=== PATIENT | male | born 1960 | race Caucasian/White ===

== ENCOUNTER 2022-01-25 08:18 | Day surgery (SDC) | payer OTHER, SELFPAY ==
[2022-01-25] VITALS (22 sets, daily range): BP systolic 127–177; BP diastolic 79–113; PULSE 54–75; RESP 16; TEMP 36.1–36.4; O2SAT 92–99; BMI 32.8
[2022-01-25] MEDS: LACTATED RINGERS 1000 ML 1,000 ML 100 ML IV ×2 (09:00→11:20)
[2022-01-25] MEDS: SODIUM CHLORIDE 0.9 % (FLUSH) 10 ML SYRINGE IVF (09:00)
[2022-01-25] MEDS: fentaNYL 100 MCG/2 ML inj IVP (09:06)
[2022-01-25] MEDS: MIDAZOLAM HCL 1 MG/ML inj IVP (09:06)
--- NOTE | 2022-01-25 09:06 | SUR.PREOP ---
TIME?OUT:?904 PT/RN/MDA?VERIFICATION?OF?SURGICAL?SITE,?PROCEDURE,?AND?CONSENT OBTAINED?PRIOR?TO?INVASIVE?PROCEDURE.
--- NOTE | 2022-01-25 09:20 | P.NB_ITS ---
Nerve Block Nerve Block Time Seen by Provider: 09:15 Date Seen: 01/25/22 Type of block requested by surgeon for post-operative analgesia: supraclavicular Side: right Time out performed: Yes Verification of patient name: Yes Verification of date of : Yes Site marking: site marked Name of person performing procedure: rosmery bettencourt Assistants, if any: Joaquín Mckenzie Continuous monitoring Was continuous monitoring of O2 sat, B/P, oxide furnace tender, recorded every 15 minutes?: Yes Procedure Checklist: sterile prep, needles and gloves Ultrasound guided. Images saved: Yes Medications given in 5ml increments after negative aspiration: Marcaine Decadron (mg): 10 Precedex (mcg): 20 Patient tolerated procedure well: Yes Block Charges Block Charge (with Pro Fee): Brachial Plexus Use of Ultrasound Machine for Block: Yes- US Guidance/pain block
[2022-01-25] MEDS: CEFAZOLIN 2 GM in 0.9 % SODIUM CHLORIDE Mini-bag 100 ML IVPB (10:30)
[2022-01-25] MEDS: EPINEPHrine 1 MG in SODIUM CHLORIDE IRRIG SOLUTION 3,000 ML 3001 MG IRRIGATION (10:57)
--- NOTE | 2022-01-25 11:45 | P.ORPRC_ITS ---
Procedure Note Date of procedure: 01/25/22 Procedure: PREOPERATIVE DIAGNOSES: 1. Right shoulder rotator cuff tear, moderate grade partial-thickness supraspinatus. POSTOPERATIVE DIAGNOSES: 1. Right shoulder rotator cuff tear, high-grade partial-thickness supraspinatus 2. Right shoulder grade 4 chondromalacia glenoid posterior central and posterior superior with some loose chondral flaps surrounding. 3. Right shoulder anterior labral tearing. 4. Right shoulder grade 2 chondromalacia humeral head 5. Right shoulder low-grade partial-thickness long head of biceps tendon tearing near the origin NAME OF OPERATION: 1. Right shoulder arthroscopic rotator cuff repair - supraspinatus 2. Right shoulder arthroscopic extensive glenohumeral debridement SURGEON: Juan Cole MD CHILD AND FAMILY SERVICES SPECIALIST: Sven Jackson PA-C. Of note, a skilled costumer assistant was critical for this case to aide in patient positioning, suture manipulation, arm positioning, instrument positioning, and closure. ANESTHESIA: General plus preoperative supraclavicular block. EBL: Less than 25 mL IMPLANTS: Arthrex 2.6 mm FiberTak (x1); 5.5 mm BioComposite SwiveLock suture anchor (x1) COMPLICATIONS: None evident INDICATIONS: The patient is a pleasant, 61-year-old male who has experienced right shoulder pain that has been increasing in recent time. Physical exam and imaging were consistent with a rotator cuff tear. Given their findings, as well as the weakness and pain, and inadequate response to nonoperative management, recommendation was made for surgery. FINDINGS: Exam under anesthesia revealed stable shoulder with excellent range of motion. The diagnostic arthroscopy revealed grade 2 chondromalacia humeral head with some loose chondral flaps. Also grade 4 chondromalacia posterior central and posterior superior glenoid with some adjacent chondral flaps. Another moderate size chondral flap over the anterior inferior glenoid at a region with grade 3-4 chondromalacia as well. The Subscapularis tendon was intact with a healthy attachment. The long head of the biceps tendon was torn low-grade manner at its origin, but it remained located within the bicipital groove. The superior rotator cuff tendon was found to be torn high-grade partial-thickness manner. On the deep surface, we could see some lift off from the supraspinatus tissue from the greater tuberosity. On the bursal side, a blunt probe easily penetrated through the apparently intact tissue. This confirmed the high-grade partial-thickness tear nature of the far anterior aspect supraspinatus. The labrum was for. No loose bodies were identified within the pouch or subscapularis recess. PROCEDURE: Following a thorough discussion of risks, benefits, and alternatives, consent was obtained and the right shoulder was marked. The patient was brought to the operating room and placed supine on the operating table. Induction of anesthesia was completed after preoperative supraclavicular block was administered in preop holding. Appropriate time out was performed identifying proper patient, site, and procedure. 2 g IV Ancef was administered within 1 hour of incision preoperatively. The right upper extremity was prepped and draped in the appropriate sterile fashion using ChloraPrep prep. This was after the patient was positioned in the beach chair with their head in neutral alignment and all bony prominences well padded. The shoulder was insufflated with 20mL of normal saline via an 18g spinal needle from a posterior approach. An 11 blade skin incision allowed a blunt trochar to be inserted and diagnostic arthroscopy to be performed with the findings as noted above. An anterior portal was established with an outside in technique. This allowed the probe to be inserted and confirm the diagnostic arthroscopic findings. The shaver was then inserted and allowed debridement of the anterior and superior labrum. Additionally, the long head of biceps tendon was debrided with a torpedo shaver at the origin of the low-grade partial-thickness tearing. Shaver was also utilized for debridement of the loose chondral flaps along the posterior glenoid chondral tissue, anterior glenoid chondral tissue, and the humeral head chondral tissue. Following this, the upper border subscapularis was probed and found to be stable. Thereafter, the subacromial space was entered. Here, a complete bursectomy was performed. There was ample space in the acromial humeral distance. In given the prior distal clavicle excision, no intervention was necessary. Further inspection of the supraspinatus and infraspinatus rotator cuff was performed. This identified the tear as noted above. The margins of the tear were debrided, and the greater tuberosity was debrided with a combination of the apollo cautery, shaver, and bur on reverse setting. After gentle decortication, a 2.6 mm RC fiber tack anchor was punched and inserted. It was pre-loaded with 1.7 mm FiberTape. The tapes were passed independently as with the eyelet suture tapes. The 4 tails were then brought to a single lateral row anchor. Excellent reapproximation of the rotator cuff tissue was achieved against the greater tuberosity. Prior to anchor hazmat truck driver removal, the eyelet sutures were tugged on for each anchor and found that the anchor had excellent stability within the bone. The shoulder was placed through range of motion and found to be stable. The rotator cuff was re-probed and found to be stable. Instruments were removed. Excess fluid was drained, closure performed with 4-0 Monocryl and Steri-Strips. Dressings were applied. Sling was applied. The patient was awoken from anesthesia and transferred to the PACU in stable condition. A skilled costumer assistant was critical for this case to aid in patient positioning, limb positioning, skill to manipulate arthroscopic instruments and camera, suture management, patient safety, and closure. PLAN: 1. Elbow, forearm, wrist and digit range of motion as tolerated. 2. Encouraged ice. 3. Percocet for pain as needed. 4. Sling at all times except for ROM and showering. 5. Follow up with PA visit in 1-2 weeks for wound check. Initiate physical therapy following that visit for passive range of motion. Initiate active assisted range of motion at 3-4 weeks. May do pendulums now.
--- NOTE | 2022-01-25 12:04 | W.ANESCHARGE ---
Anesthesia Charges Start Date/Time Anesthesia Start Date: 01/25/22 Anesthesia Start Time: 10:21 Stop Date/Time Anesthesia Stop Date: 01/25/22 Anesthesia Stop Time: 12:03 Summary Emergency: No
== END 2022-01-25 14:05 | disposition home or self-care (01) ==
PROVIDERS: PCP Family Medicine; Visit Provider Orthopaedic Surgery Sports Medicine
PROC: (CPT 29805; principal; 2022-01-25 09:45)
DX: M75.111 Incomplete rotator cuff tear or rupture of right shoulder, not specified as traumatic (principal); M94.211 Chondromalacia, right shoulder; S43.431A Superior glenoid labrum lesion of right shoulder, initial encounter; S46.111A Strain of muscle, fascia and tendon of long head of biceps, right arm, initial encounter; M25.511 Pain in right shoulder
CPT/HCPCS: 29827; 29823; 01630; 64415; 76942; C1713; J0171; J0330; J0690; J1100; J2250; J2405; J2704; J2795; J3010; J7120; L3670

== ENCOUNTER 2023-03-20 08:39 | Outpatient (CLI) | payer OTHER, SELFPAY | END 2023-03-20 08:40 | disposition home or self-care (01) | LOC: CT 08:46 | PROVIDERS: PCP Family Medicine; Visit Provider Orthopaedic Surgery Sports Medicine | DX: M19.011 Primary osteoarthritis, right shoulder (principal); Z01.818 Encounter for other preprocedural examination | CPT/HCPCS: 73200 ==

== ENCOUNTER 2023-04-12 13:53 | Outpatient (RCR) | payer OTHER, SELFPAY ==
--- NOTE | 2023-04-12 20:08 | OT.OPGNE2 ---
OT Outpatient General/Neuro Eval OT Outpatient General/Neuro Eval* Start: 04/12/23 19:51 Freq: Status: Active Protocol: Document 04/12/23 19:55 SMW (Rec: 04/12/23 20:05 SMW Laptop) E-signed By Narda Boucher OT OT Outpatient Evaluation Details Type Type Eval Complexity Low Insurance Information Insurance Information Insurance Information [employer] Outpatient History/Precautions Current Condition Referring Provider Dr. Cole Medical Diagnoses primary osteoarthritis, right shoulder Treatment Diagnoses TSA pre-op Medical/Functional History Medical History Reviewed Yes Prior Level of Function/Mobility I in all ADLs and mobility Prior Medical History Prior Medical History HTN, metal implants, arthritis , allergies. 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 Assessment Assessment Assessment The patient is a 62 year old male referred to outpatient OT for a RTSA preop. Patient lives with his supportive who is able to assist the patient as needed. He is independent in ADLs and mobility. He has had multiple orthopedic surgeries on various joints. He voices some anxiety related to his upcoming surgery. He had a right rotator cuff repair last year and is familiar with sling, precautions which are similar to TSA. He and spouse were educated on all aspects of post TSA including sling management, post op exercises, one handed ADL tasks, postioning and general information. All questions were answered satisfactorily. Occupational Therapy Treatment Plan - OP Goals Goals During pre-op visit, the patient will be educated on.. 1. sling management, post op exercises, one handed ADL techniques and postioning. goal met Certification Certification Statement I Certify That: Therapy Services Provided, Therapy Plan Established, Therapy Plan Reviewed
== END 2023-08-10 23:59 | disposition home or self-care (01) ==
PROVIDERS: PCP Family Medicine; Visit Provider Orthopaedic Surgery Sports Medicine
DX: M19.011 Primary osteoarthritis, right shoulder (principal); Z96.611 Presence of right artificial shoulder joint; Z51.89 Encounter for other specified aftercare
CPT/HCPCS: 97165; 97535

== ENCOUNTER 2023-04-18 09:00 | Day surgery (SDC) | payer OTHER, SELFPAY ==
[2023-04-18] VITALS (21 sets, daily range): BP systolic 114–166; BP diastolic 77–101; PULSE 66–96; RESP 14–25; TEMP 35.9–36.7; O2SAT 94–98; BMI 30.7
[2023-04-18] MEDS: SODIUM CHLORIDE 0.9 % (FLUSH) 10 ML SYRINGE IVF (09:45)
[2023-04-18] MEDS: LACTATED RINGERS 1000 ML 1,000 ML 100 ML IV ×2 (09:45→11:44)
[2023-04-18] MEDS: MIDAZOLAM HCL 1 MG/ML inj IVP (10:01)
[2023-04-18] MEDS: fentaNYL 100 MCG/2 ML inj IVP (10:01)
--- NOTE | 2023-04-18 10:03 | SUR.PREOP ---
TIME?OUT:?1000 PT/Irene Paris RN/Dr. Lai MDA?VERIFICATION?OF?SURGICAL?SITE right shoulder,?PROCEDURE,?AND?CONSENT OBTAINED?PRIOR?TO?INVASIVE?PROCEDURE.
--- NOTE | 2023-04-18 10:25 | W.PM.H&PU ---
History & Physical Update History & Physical Update H&P Reviewed and patient assessed: No changes noted
[2023-04-18] MEDS: CEFAZOLIN 2 GM in 0.9 % SODIUM CHLORIDE Mini-bag 100 ML IVPB ×2 (10:29→17:01)
--- NOTE | 2023-04-18 10:32 | CRLHL7_ITS ---
For Patients: As a result of the Cures Act, medical imaging exams and procedure reports are released immediately into your electronic medical record. You may view this report before your referring provider. If you have questions, please contact your health care provider. Indication: POST OP Technique: Two views right shoulder Findings/Impression: Hardware from a right shoulder arthroplasty is in satisfactory position. Bone alignment is normal. No sign of acute fracture. Postop changes are within normal limits. Dictated by Mahesh Bourgeois MD @ 04/18/2023 1:31:31 PM (Electronically Signed)
[2023-04-18] MEDS: TRANEXAMIC ACID 100 MG/ML INJ 1000 MG IV (10:33)
--- NOTE | 2023-04-18 10:35 | P.NB_ITS ---
Nerve Block Nerve Block Time Seen by Provider: 10:05 Date Seen: 04/18/23 Type of block requested by surgeon for post-operative analgesia: supraclavicular Side: right Time out performed: Yes Verification of patient name: Yes Verification of date of : Yes Site marking: site marked Name of person performing procedure: Lai Assistants, if any: Anand Continuous monitoring Was continuous monitoring of O2 sat, B/P, monitoring engineer, recorded every 15 minutes?: Yes Procedure Checklist: sterile prep, needles and gloves Ultrasound guided. Images saved: Yes Medications given in 5ml increments after negative aspiration: Marcaine %: 0.5 mL: 10 Needle gauge: 22 and Exparel mL: 10 Patient tolerated procedure well: Yes Block Charges Block Charge (with Pro Fee): Brachial Plexus Use of Ultrasound Machine for Block: Yes- US Guidance/pain block
--- NOTE | 2023-04-18 10:37 | W.ANESCHARGE ---
Anesthesia Charges Start Date/Time Anesthesia Start Date: 04/18/23 Anesthesia Start Time: 10:13 Stop Date/Time Anesthesia Stop Date: 04/18/23 Anesthesia Stop Time: 13:07
--- NOTE | 2023-04-18 12:56 | PM.ORPRC ---
Procedure Note Date of procedure: 04/18/23 Procedure: PREOPERATIVE DIAGNOSIS: 1. Right shoulder osteoarthrosis, primary, severe POSTOPERATIVE DIAGNOSIS: 1. Right shoulder osteoarthrosis, primary, severe 2. Right shoulder long of the biceps tendinopathy/tenosynovitis PROCEDURE: 1. Right total shoulder arthroplasty-anatomic. 2. Right shoulder open long head of biceps tenodesis SURGEON: Juan Cole MD. WOOD PREPARATION SUPERVISOR: Bobby HACKETT; Sven Jackson PA-C - Of note, a skilled nursing home assistant administrator was critical for this case to aid in patient positioning, tissue retraction, limb manipulation/positioning, awareness and protection of critical structures, and closure. ANESTHESIA: General plus supraclavicular block EBL: 150 mL IMPLANTS: DJO Size 1 Blazer. 50 x 18 mm stem was humeral head; 50 mm glenoid with a radius of curvature - cemented, pegged E+glenoid COMPLICATIONS: None evident INDICATIONS: The patient is a pleasant 62-year-old male who has experienced severe right shoulder pain and difficulty with use. Workup included x-rays which revealed severe osteoarthrosis. Physical exam was consistent with associated pain. Given the deformity, the dysfunction, and the pain, recommendation was made for surgery. DESCRIPTION OF PROCEDURE: Following a thorough discussion of risks, benefits, and alternatives, consent was obtained and the right shoulder was marked. The patient was brought to the operating room and placed supine on the operating table. Induction of anesthesia was undertaken. 2 g IV Ancef and 1 g tranexamic acid was administered within 1 hr of incision preoperatively. Appropriate time-out was performed identifying proper patient, site, and procedure. The operative extremity was prepped and draped in the appropriate sterile fashion using ChloraPrep after the patient was positioned in the beach chair with head in neutral alignment and all bony prominences well padded. A longitudinal incision was made for deltopectoral approach. Deltoid and cephalic vein were retracted laterally and protected throughout the case.. The clavipectoral fascia was identified and divided longitudinally staying lateral to the conjoined tendon / coracoid. The conjoined tendon was protected with a blunt Hohmann. The long head of the biceps tendon was identified and tenodesis performed suturing it to the pectoralis major tendon at their confluence. The upper 1/3 of the pectoralis major was 1st released from its insertion. The superior portion of the rotator cuff was inspected and found to have good integrity. The subscapularis was released from its lesser tuberosity via a tenotomy down through the 3 sisters which were ligated and cauterized. After releasing the subscapularis, the capsule was released from the inferior humeral neck allowing us to remove the inferior humeral head osteophyte. The subscapularis was also released from the superior glenohumeral ligament and middle glenohumeral ligament. It was then tucked into the subscapularis fossa anteriorly, and we turned our attention to the humeral preparation. The humerus was dislocated, and humeral head cut performed paying attention to the patient's [place] version anatomy. With the simplicity protocol, the guide pin was drilled through the lateral humeral cortex, a Blazer size 1 was applied, and the humerus was planed. The humerus was then protected with a plate and attention was turned to the glenoid preparation. The humerus was retracted posteriorly. The subscap was protected anteriorly and the labrum was released along the glenoid anterior, inferior and posterioinferior regions via combination of Bovie cautery or 15 blade. He was found have approximately 8 degrees retroversion to the glenoid. As such, a correction to approximately 2? retroversion plan]. The guide was applied to the [place] glenoid. The guide pin was placed and the subsequent preparation performed with Reamer down to cortical/subchondral bone, central boss drill, and peripheral peg drill. A glenoid trial was placed with good security, and the real glenoid implant opened. Cement was mixed on the back table. Thorough irrigation normal saline of the glenoid vault was performed with suction of the peg holes. Cement into the 3 peripheral peg holes was performed and the glenoid component inserted and held until cement had cured. We then turned our attention back to the humerus. Consistent with the preop planning, the appropriate head was selected, trialed, and found have an excellent fixation and tension. 50% bounce-back was visualized with posterior directed force, internal rotation was achieved to 60? comfortably, and conjoined tendon had good tension. At this stage, a 3 min Betadine soak was performed followed by a thorough irrigation with normal saline. Subscapularis was reapproximated with # 1 PDS. The rotator interval was reapproximated as well. The deltopectoral interval was reapproximated with 0 Vicryl, subcutaneous and subcuticular closure was then performed with number 2-0 Vicryl and 4-0 Monocryl, respectively. A skilled nursing home assistant administrator was critical for this case to aid in patient positioning, tissue retraction, bone exposure, limb manipulation/positioning, shoulder dislocation/relocation, patient safety, and closure. PLAN: 1. Sling at all times right upper extremity. May come out of this for elbow, forearm, wrist, and digit range of motion. 2. PT/OT consults for education and assistance. 3. Sanitary Plumber consult for discharge planning. 4. Admit to the hospital. 23 hr perioperative antibiotics. 5. Early ambulation, and SCDs for DVT prophylaxis.
--- NOTE | 2023-04-18 13:07 | W.ANESCHARGE ---
Anesthesia Charges Start Date/Time Anesthesia Start Date: 04/18/23 Anesthesia Start Time: 10:13 Stop Date/Time Anesthesia Stop Date: 04/18/23 Anesthesia Stop Time: 13:07
[2023-04-18] MEDS: fentaNYL 100 MCG/2 ML inj 50 MCG IVP (13:28)
--- NOTE | 2023-04-18 13:48 | SUR.PHASEI ---
patient met discharge criteria per anesthesia
[2023-04-18] MEDS: HYDROCODONE-ACETAMIN 5-325 MG 1 TAB PO ×2 (14:52→19:59)
[2023-04-18] MEDS: LACTATED RINGERS 1000 ML 1,000 ML 75 ML IV (14:55)
[2023-04-18] MEDS: MAG HYDROX/ALUMINUM HYD/SIMETH 30 ML ORAL.SUSP PO (20:01)
--- NOTE | 2023-04-18 21:13 | PM.IMCN1 ---
Date of Consult Patient: Josafat Patient Consult date: 04/18/23 Requesting Physician: Orthopedics Primary Care Provider: Barrington Gutierrez MD Consult Narrative Reason for consult: s/p R shoulder arthroplasty medical management Narrative: Mahesh Truong is a 62 year old man with known severe right shoulder osteoarthritis. He undergoes an elective right shoulder arthroplasty and right shoulder open long head of biceps tenodesis today with no apparent complications. Estimated blood loss 150 mL. Review of Systems Status of ROS: Reports: 10 or more systems reviewed and unremarkable except as noted in History and below Narrative: I review his preoperative assessment dated 04/11/2023. No contraindications for surgery noted. Mention is made that patient consumes roughly 12 standard drinks of alcohol per week. Patient denies alcohol withdrawal symptoms. Is a former cigarette smoker, quit 1989, with a 15 pack-year history of smoking. Has had postoperative nausea and vomiting from prior surgeries. No history of deep venous thrombosis or pulmonary embolism. Known to have obstructive sleep apnea for which he utilizes his CPAP machine, telling me that it is hard for him to sleep without it. No recent illnesses. Denies fevers, rigors, diaphoresis. No recent travel, trauma, injury. [facility] Medical History (Updated 04/19/23 @ 11:57 by Sven Jackson PA-C) Hypothyroidism ?E03.9 - Hypothyroidism, unspecified (ICD-10) Hypertension ?I10 - Essential (primary) hypertension (ICD-10) Sleep apnea ?G47.30 - Sleep apnea, unspecified (ICD-10) Post-operative nausea and vomiting ?R11.2 - Nausea with vomiting, unspecified (ICD-10) ?Z98.890 - Other specified postprocedural states (ICD-10) DDD (degenerative disc disease) Surgical History Status post arthroscopy of left shoulder (12/09/08) ?Z98.890 - Other specified postprocedural states (ICD-10) S/P left knee arthroscopy (06/26/12) ?Z98.890 - Other specified postprocedural states (ICD-10) History of arthroplasty of finger of left hand (03/11/14) ?Z96.692 - Finger-joint replacement of left hand (ICD-10) History of arthroplasty of finger of right hand (03/10/15) ?Z96.691 - Finger-joint replacement of right hand (ICD-10) S/P arthroscopy of right shoulder (05/03/00) ?Z98.890 - Other specified postprocedural states (ICD-10) S/P right rotator cuff repair (01/25/22) ?Z98.890 - Other specified postprocedural states (ICD-10) History of lumbar surgery ?Z98.890 - Other specified postprocedural states (ICD-10) Social History What is your current living situation?: I presently have a place to live In the past 12 months, utilities in danger of being shut off: no In past 12 months, lack of transportation kept you from medical appts, meetings, work, or getting things needed for daily living: no In the past 12 mos, have been you worried that your food would run out before you had money to buy more?: never true In the past 12 mos, the food you bought just didn't last and you didn't have money to buy more?: never true Highest level of school completed/degree received: high school graduate Smoking Status: Never smoker Do you use any of these nicotine containing products: None How often do you have a drink containing alcohol: monthly or less How many standard drinks containing alcohol do you have on a typical day: 1 or 2 How often do you have six or more drinks on one occasion: Never AUDIT-C Alcohol total score: 1 Non-prescribed substance use: denies use Caffeine: Yes (6-8 cups/coffee) How often does anyone, including family, friends and others, physically hurt you: never How often does anyone, including family, friends and others, insult or talk down to you: never How often does anyone, including family, friends and others, threaten you with harm: never How often does anyone, including family, friends and others, scream or curse at you: never service: No Meds Home Medications and Allergies Home Medications Medication Instructions Recorded Confirmed Type gabapentin 300 mg capsule 300 mg PO BID 01/24/22 04/18/23 History lisinopril 40 mg tablet 40 mg PO DAILY 01/24/22 04/18/23 History levothyroxine 175 mcg tablet 175 mcg PO DAILY 01/23/23 04/18/23 History loratadine 10 mg tablet (Claritin) 10 mg PO DAILY PRN 01/23/23 04/17/23 History albuterol sulfate 90 mcg/actuation 1 - 2 inh inhalation Q4H PRN 04/17/23 04/17/23 History aerosol inhaler (Ventolin HFA) lorazepam 1 mg tablet (Ativan) 1 mg PO BID PRN 04/17/23 04/17/23 History sildenafil 100 mg tablet 100 mg PO PRN PRN 04/17/23 04/17/23 History Allergies Allergy/AdvReac Type Severity Reaction Status Date / Time amlodipine Allergy Edema Verified 01/23/23 11:09 hydrochlorothiazide AdvReac Verified 01/23/23 11:09 hydromorphone [From Dilaudid] AdvReac Verified 01/23/23 11:09 morphine AdvReac Verified 01/23/23 11:09 oxycodone [From Percocet] AdvReac Anxiety Verified 01/23/23 11:09 Exam Narrative: Exam Narrative: I 1st examined patient in his hospital room. Later I observe him ambulating the hallways independently. Appears comfortable and in no acute distress. Vision and hearing are grossly normal. Alert and oriented to self, place, time, situation. Friendly, cooperative, articulate. Lungs are clear to auscultation. Breath sounds throughout both lung ascencio. No wheezing, rhonchi, or rales. Chest wall excursions are full with respiratory efforts. No CVA tenderness. Heart tones with regular rhythm, normal S1-S2, without murmur, gallop, or rub. PMI is not laterally displaced. Abdomen with active bowel sounds, soft, nontender. No rebound or guarding. Right shoulder with immobilizer. Moves fingers of the affected right hand. No other focal motor neurologic deficits. Const: Vital Signs, click to edit/add: Vital Signs - 24 hr 04/18/23 09:52 04/18/23 10:01 04/18/23 10:05 Temperature 97.6 F Pulse Rate 66 77 75 Pulse Rate [Pulse Oximeter] Respiratory Rate 16 16 16 Blood Pressure 142/90 H 166/101 H 151/99 H Blood Pressure [Le ft Arm] Pulse Oximetry 95 98 96 Oxygen Delivery Me thod Room Air Nasal Cannula Nasal Cannula Oxygen Flow Rate 2 2 04/18/23 13:03 04/18/23 13:05 04/18/23 13:10 Temperature 97.1 F L 97.1 F L 97.1 F L Pulse Rate 85 80 78 Pulse Rate [Pulse Oximeter] Respiratory Rate 20 24 22 Blood Pressure 135/86 133/90 H 114/77 Blood Pressure [Le ft Arm] Pulse Oximetry 95 95 94 Oxygen Delivery Me thod Room Air Room Air Room Air Oxygen Flow Rate 04/18/23 13:15 04/18/23 13:20 04/18/23 13:25 Temperature 97.1 F L 97.1 F L 97.1 F L Pulse Rate 75 75 74 Pulse Rate [Pulse Oximeter] Respiratory Rate 21 21 25 H Blood Pressure 140/98 H 133/97 H 138/98 H Blood Pressure [Le ft Arm] Pulse Oximetry 94 94 94 Oxygen Delivery Me thod Room Air Room Air Room Air Oxygen Flow Rate 04/18/23 13:30 04/18/23 13:35 04/18/23 14:00 Temperature 97.1 F L 97.7 F 97.3 F L Pulse Rate 74 73 Pulse Rate [Pulse Oximeter] 72 Respiratory Rate 18 19 16 Blood Pressure 140/92 H 139/95 H Blood Pressure [Le ft Arm] 137/99 H Pulse Oximetry 94 94 97 Oxygen Delivery Me thod Room Air Room Air Room Air Oxygen Flow Rate 2 04/18/23 14:05 04/18/23 14:15 04/18/23 14:30 Temperature 97.3 F L 96.7 F L 97.1 F L Pulse Rate 74 Pulse Rate [Pulse Oximeter] 73 75 Respiratory Rate 14 16 18 Blood Pressure Blood Pressure [Le ft Arm] 139/94 H 138/98 H 142/99 H Pulse Oximetry 97 95 Oxygen Delivery Me thod Room Air Room Air Room Air Oxygen Flow Rate 04/18/23 14:45 04/18/23 15:15 04/18/23 15:45 Temperature 97.1 F L 98 F 97.3 F L Pulse Rate Pulse Rate [Pulse Oximeter] 77 96 72 Respiratory Rate 18 18 Blood Pressure Blood Pressure [Le ft Arm] 143/90 H 140/95 H 136/93 H Pulse Oximetry 95 95 Oxygen Delivery Me thod Room Air Room Air Room Air Oxygen Flow Rate 04/18/23 16:45 04/18/23 17:45 Temperature Pulse Rate Pulse Rate [Pulse Oximeter] 93 96 Respiratory Rate 20 20 Blood Pressure Blood Pressure [Le ft Arm] 145/98 H 140/96 H Pulse Oximetry 95 97 Oxygen Delivery Me thod Room Air Room Air Oxygen Flow Rate Assessment and Plan Assessment and plan (1) Osteoarthritis of right shoulder: Problem comment: - Severe - status post right anatomic total shoulder arthroplasty, 04/18/2023, Dr. Juan Cole, [facility], [place], [place] Status: Chronic (2) Sleep apnea: Problem comment: - daily CPAP use at bedtime Status: Acute (3) Hypertension: Problem comment: - continue antihypertensive medications as prescribed Status: Acute (4) Hypothyroidism: Problem comment: - continued with levothyroxine supplementation Status: Acute Plan 1. Reviewed impression with patient and . 2. Answered their questions. 3. They are agreeable with above stated plans and recommendations. 4. Completed hospitalist portion of discharge orders.
[2023-04-18] MEDS: SENNOSIDES 1 TAB TABLET 2 TAB PO (21:40)
[2023-04-18] MEDS: LORazepam 1 MG TABLET PO (21:40)
[2023-04-18] MEDS: IBUPROFEN 200 MG TABLET 400 MG PO (21:40)
[2023-04-18] MEDS: GABAPENTIN 300 MG CAPSULE PO (21:41)
--- NOTE | 2023-04-18 22:33 | PC.NURSE ---
Patient arrived to unit from surgery. Alert and oriented x3, vitally stable and uses call light appropriately. Dressing CDI and CMS intact. Patient reported feeling sensation and all feeling in right shoulder and arm. Pain adequately managed with PRN pain medications. Patient up ambulating independently in room and halls. Nursing to continue to monitor and prepare for discharge.
[2023-04-19] MEDS: CEFAZOLIN 2 GM in 0.9 % SODIUM CHLORIDE Mini-bag 100 ML IVPB ×2 (00:57→08:46)
[2023-04-19 03:00] VITALS: BP 125/65; PULSE 62; RESP 18; TEMP 36.6; O2SAT 93
[2023-04-19] MEDS: HYDROCODONE-ACETAMIN 5-325 MG 1 TAB PO ×2 (04:57→08:53)
[2023-04-19 06:14] LABS: Hematocrit 36.8 % (37.0-53.0); Hemoglobin* 12.4 gm/dL (13.5-17.5); Mean Corpuscular HGB Conc 34 gm/dL (32-36); Mean Corpuscular Hemoglobin 31 pg (26-34); Mean Corpuscular Volume 92 fL (80-100); Platelet Count* 185 K/uL (140-440); Red Blood Count 4.01 m/uL (4.30-5.90)
[2023-04-19 06:19] LABS: Slide Review Reflex No
--- NOTE | 2023-04-19 06:20 | PC.NURSE ---
End of shift report [id number]: Alert and oriented x 4. Pain to right shoulder well managed with current regimen of PRN medications, ice pack and positioning. CMS intact to right hand, no numbness noted. Dressing clean, dry and intact. Independent with ambulation and cares.
[2023-04-19 06:24] LABS: Potassium* 4.4 mmol/L (3.6-5.1); Sodium* 134 mmol/L (135-149)
[2023-04-19 06:27] LABS: Blood Urea Nitrogen* 19 mg/dL (7-30); Est. Creatinine Clearance* 90.19; Estimated Glomerular Filt Rate 86 ml/min
[2023-04-19] MEDS: LEVOTHYROXINE 100 MCG TABLET PO (06:38)
[2023-04-19] MEDS: LEVOTHYROXINE 75 MCG TABLET PO (06:38)
[2023-04-19 08:30] VITALS: BP 134/84; PULSE 75; RESP 18; TEMP 36.6; O2SAT 95
[2023-04-19] MEDS: SENNOSIDES 1 TAB TABLET 2 TAB PO (08:47)
[2023-04-19] MEDS: lisinopriL 20 MG TABLET 40 MG PO (08:47)
[2023-04-19] MEDS: GABAPENTIN 300 MG CAPSULE PO (08:47)
--- NOTE | 2023-04-19 09:49 | REH.PT ---
Pt declines PT. He is amb throughout the nursing floor ind without an AD. He has no mobility concerns at this time. OT addressed HEP and performed post op teaching. D/C PT
--- NOTE | 2023-04-19 11:52 | PM.ORPN ---
Subjective Subjective Date Seen: 04/19/23 Principal diagnosis: Status postop day 1 right anatomic total shoulder arthroplasty Interval history: Patient reports doing well. No acute events over night. Pain managed with scheduled and PRN medications, ice. DVT prophylaxis: bilateral knee high Duc stockings, SCDs, walking. Denies fevers, chills, aches, N/V, CP, SOB/RUVALCABA, or lightheadedness. Passing flatus. Ortho Exam Narrative Exam Narrative: -Patient appears comfortable in recliner; no apparent acute distress -Alert and oriented times 3 -Operative shoulder swollen; soft, supple tissues; no obvious erythema. No Ecchymosis. Warmth appropriate -Surgical dressing clean, dry, intact; no obvious drainage, no erythematous streaking peripheral to the bandage -Bilateral calves soft and supple; no significant swelling, edema, tenderness, erythema, discoloration, warmth, or palpable cords -2+ radial pulse, intact dermatomes and myotomes distally (5/5 strength) Const Vital Signs, click to edit/add: Vital Signs - 24 hr 04/18/23 13:03 04/18/23 13:05 04/18/23 13:10 Temperature 97.1 F L 97.1 F L 97.1 F L Pulse Rate 85 80 78 Pulse Rate [Pulse Oximeter] Pulse Rate [Right Radial] Respiratory Rate 20 24 22 Blood Pressure 135/86 133/90 H 114/77 Blood Pressure [Left Arm] Pulse Oximetry 95 95 94 Oxygen Delivery Method Room Air Room Air Room Air Oxygen Flow Rate 04/18/23 13:15 04/18/23 13:20 04/18/23 13:25 Temperature 97.1 F L 97.1 F L 97.1 F L Pulse Rate 75 75 74 Pulse Rate [Pulse Oximeter] Pulse Rate [Right Radial] Respiratory Rate 21 21 25 H Blood Pressure 140/98 H 133/97 H 138/98 H Blood Pressure [Left Arm] Pulse Oximetry 94 94 94 Oxygen Delivery Method Room Air Room Air Room Air Oxygen Flow Rate 04/18/23 13:30 04/18/23 13:35 04/18/23 14:00 Temperature 97.1 F L 97.7 F 97.3 F L Pulse Rate 74 73 Pulse Rate [Pulse Oximeter] 72 Pulse Rate [Right Radial] Respiratory Rate 18 19 16 Blood Pressure 140/92 H 139/95 H Blood Pressure [Left Arm] 137/99 H Pulse Oximetry 94 94 97 Oxygen Delivery Method Room Air Room Air Room Air Oxygen Flow Rate 2 04/18/23 14:05 04/18/23 14:15 04/18/23 14:30 Temperature 97.3 F L 96.7 F L 97.1 F L Pulse Rate 74 Pulse Rate [Pulse Oximeter] 73 75 Pulse Rate [Right Radial] Respiratory Rate 14 16 18 Blood Pressure Blood Pressure [Left Arm] 139/94 H 138/98 H 142/99 H Pulse Oximetry 97 95 Oxygen Delivery Method Room Air Room Air Room Air Oxygen Flow Rate 04/18/23 14:45 04/18/23 15:15 04/18/23 15:45 Temperature 97.1 F L 98 F 97.3 F L Pulse Rate Pulse Rate [Pulse Oximeter] 77 96 72 Pulse Rate [Right Radial] Respiratory Rate 18 18 Blood Pressure Blood Pressure [Left Arm] 143/90 H 140/95 H 136/93 H Pulse Oximetry 95 95 Oxygen Delivery Method Room Air Room Air Room Air Oxygen Flow Rate 04/18/23 16:45 04/18/23 17:45 04/18/23 23:00 Temperature 98.1 F Pulse Rate Pulse Rate [Pulse Oximeter] 93 96 94 Pulse Rate [Right Radial] 94 Respiratory Rate 20 20 18 Blood Pressure Blood Pressure [Left Arm] 145/98 H 140/96 H 150/97 H Pulse Oximetry 95 97 95 Oxygen Delivery Method Room Air Room Air Room Air Oxygen Flow Rate 04/19/23 03:00 Temperature 97.9 F Pulse Rate Pulse Rate [Pulse Oximeter] 62 Pulse Rate [Right Radial] Respiratory Rate 18 Blood Pressure Blood Pressure [Left Arm] 125/65 Pulse Oximetry 93 Oxygen Delivery Method Room Air Oxygen Flow Rate Assessment and Plan Assessment and plan (1) Osteoarthritis of right shoulder: Problem details: - Severe - status post right anatomic total shoulder arthroplasty, 04/18/2023, Dr. Juan Cole, [facility], [place], [place] Status: Chronic (2) Sleep apnea: Problem details: - daily CPAP use at bedtime Status: Acute (3) Hypertension: Problem details: - continue antihypertensive medications as prescribed Status: Acute (4) Hypothyroidism: Problem details: - continued with levothyroxine supplementation Status: Acute Plan - Complete 23 hour perioperative antibiotics. - PT/OT consult for education and assistance. - Social work consult for discharge planning - Prescribed analgesics as needed - DVT prophylaxis: bilateral knee high Duc Hose stockings and SCDs - Anticipation is for discharge to home with spouse 04/19/2023 if the patient remains medically stable, pain is controlled, and they are safe with mobilization.
--- NOTE | 2023-04-19 16:10 | PC.NURSE ---
DRESSING TO SHOULDER CDI. DENIED N/V. AMBULATING INDEPENDENTLY IN HALLWAY. CRYOCUFF TO RIGHT SHOULDER. PAIN CONTROLLED WITH NORCO. TOLERATING REGULAR DIET WITH NO C/O N/V. SALINE LOCK DC'D. REVIEWED DC INSTRUCTIONS AND CRYOCUFF USE WITH PATIENT AND SPOUSE AND BOTH DENIED QUESTIONS OR CONCERNS. PATIENT DC'D HOME VIA .
== END 2023-04-19 10:38 | disposition home or self-care (01) ==
LOC: OR 09:01 → MEDSURG 09:02
PROVIDERS: PCP Family Medicine; Visit Provider Orthopaedic Surgery Sports Medicine
PROC: 0RRJ0JZ Replacement of Right Shoulder Joint with Synthetic Substitute, Open Approach (ICD-10-PCS; CPT 23472; principal; 2023-04-18 10:45)
DX: M19.011 Primary osteoarthritis, right shoulder (principal); G89.18 Other acute postprocedural pain; M65.811 Other synovitis and tenosynovitis, right shoulder; I10 Essential (primary) hypertension; E03.9 Hypothyroidism, unspecified; G47.30 Sleep apnea, unspecified
CPT/HCPCS: 23472; 23430; 01638; 36415; 64415; 73030; 76942; 82565; 84132; 84295; 84520; 85027; 97110; 97165; 97535; A9270; C1776; C9290; J0330; J0665; J0690; J1100; J2250; J2405; J2704; J3010; J3490; J7120; L3670